=== PATIENT | male | born 1965 ===

== ENCOUNTER 2024-04-03 07:16 | Day surgery (SDC) | payer OTHER ==
[2024-03-31 13:29] LABS: Absolute Basophils 0.1 K/uL (0-0.5); Absolute Eosinophils 0.2 K/uL (0-0.5); Absolute Lymphocytes (CBC) 1.8 K/uL (0.7-4.9); Absolute Monocytes 0.6 K/uL (0.1-1.3); Absolute Neutrophil 4.8 K/uL (1.8-8.0); Basophils % 0.9 % (0-1.3); Eosinophils % 2.1 % (0-4.4); Hematocrit 41.3 % (39.6-49.0); Hemoglobin 13.7 g/dL (13.6-17.9); Lymphocytes % 24.7 % (15.3-44.8); MCH 30.4 pg (27.0-35.0); MCHC 33.1 g/dL (32.0-36.0); MPV 8.3 fL (7.6-11.3); Monocytes % 8.4 % (3.3-12.3); Neutrophils % 63.9 % (41.7-73.7); Platelets 254 thou/uL (152-406); RBC Red Blood Cell Count 4.49 M/uL (4.33-5.43)
[2024-03-31 13:45] LABS: Anion Gap 7.9 mEq/L (5.0-15.0); Potassium 3.9 mEq/L (3.5-5.1)
[2024-04-03] MEDS: Ringers Lactate 1,000 ML IV ONE (07:54)
[2024-04-03] MEDS: FAMOTIDINE 20 MG/2 ML VIAL IV ONE (08:07)
[2024-04-03] MEDS ORDERED: SUCCINYLCHOLINE 20 MG/ML (10 ML) IV ONE (08:15)
[2024-04-03] MEDS ORDERED: LIDOCAINE 1% MPF 5 ML VIAL ONE (08:16)
[2024-04-03] MEDS ORDERED: propofoL 200 MG/20 ML VIAL IV ONE (08:16)
[2024-04-03 09:04] VITALS: TEMP 98.9
[2024-04-03 10:24] VITALS: BP 151/87; O2SAT 97
== END 2024-04-03 09:50 | disposition home or self-care (01) ==
LOC: OR 07:16
PROVIDERS: ATTEND Surgery
PROC: 0DJD8ZZ Inspection of Lower Intestinal Tract, Via Natural or Artificial Opening Endoscopic (ICD-10-PCS; principal; 2024-04-03 08:30)
DX: Z12.11 Encounter for screening for malignant neoplasm of colon (principal); K64.8 Other hemorrhoids; K64.4 Residual hemorrhoidal skin tags; K57.30 Diverticulosis of large intestine without perforation or abscess without bleeding
CPT/HCPCS: 85025; 80048; 36415; 45378; J2704; J2003; J7120